=== PATIENT | male | born 1985 | race Caucasian/White ===

== ENCOUNTER 2017-07-08 17:49 | Emergency (ER) | payer BC ==
[~2017-07-08] VITALS: Ht 172.7 cm; Wt 144.0 kg
[~2017-07-08 17:49] MED LIST: ACET-1256 PO
[2017-07-08 18:24] VITALS: TEMP 36.9; Ht 172.7 cm; Wt 144.0 kg
[2017-07-08] MEDS ORDERED: GELATIN SPONGE 12-7MM EXT ONE (19:00)
[2017-07-08] MEDS ORDERED: DIPHTHERIA/TETANUS/PERTUSSIS 0.5 ML SYR/VIAL IM. ONE (19:30)
[2017-07-08 19:43] VITALS: BP 147/97; PULSE 80; O2SAT 95
--- NOTE | 2017-07-10 20:07 | EMERGENCY ROOM VISIT NOTE ---
ED Visit Note First contact with patient: 18:29 Chief Complaint: Cut the tip of my left index finger off. History of Present Illness: Mr. Franz is a 32-year-old white male who ambulates into the ED accompanied by his complaining of a Skin avulsion to the left index finger. Patient reports less than an hour ago he was peeling potatoes when he sliced/ avulsed the tip of the left index finger. He reports she control bleeding but did not wash the wound prior to arrival at the hospital. Associated with his wound he reports he has having a stinging discomfort. He rates his discomfort 4/10. His pain worsens with palpation. He has not identified any alleviating factors related to the pain. He has not taken any medications for pain prior to arrival at the hospital. He denies any associated symptoms including other finger pain, index finger weakness/numbness/ tingling. Review of Systems: As noted above in history of present illness. Past Medical History: Patient denies. Current Medications: Patient denies. Allergies to Medications: Penicillin. Social History: Patient is currently employed; he feels safe in his home environment; he denies tobacco and alcohol use. Tetanus Immunization Status: Patient reports greater than 10 years. Physical Examination: Vital Signs: Date Time Temp Pulse Resp B/P (MAP) Pulse Ox O2 Delivery O2 Flow Rate FiO2 07/08/17 19:43 80 147/97 95 07/08/17 18:24 36.9 77 20 134/74 95 Room Air GENERAL: 32-year-old female in mild distress due to pain, nontoxic-appearing, afebrile and hemodynamically stable. NEUROLOGICAL: Awake, alert and oriented to person, place and time. Answering questions appropriately and following commands. SKIN: Warm, dry and pink. Left Index Finger: Just proximal to the fingernail over the tip of the finger patient has a subcentimeter skin avulsion. Minimal bleeding on my examination. LEFT INDEX FINGER: Please note soft tissue injury above under SKIN. No gross bony deformity. Full range of motion in flexion and extension of the MCP, PIP and DIP joints against resistance. Throughout the finger the skin was warm and pink and capillary refill is brisk. He was able to distinguish light sensations to all dermatomes. ED Course: Patient is assessed as noted above. Patient's medication list was reviewed. Patient was offered pain medications and refused. Patient's wound was cleansed with antibacterial soap and water. The wound was dressed with Surg[place] and a sterile gauze bandage. Patient was educated about tonight's findings and instructed on his treatment plan; he verbalizes understanding and agreement with this plan. Clinical Impression: Left index finger can avulsion. Disposition: Patient discharged home in stable condition; prior to departure he was reassessed and subjectively reported he was pain-free. Plan: Comfort measures, wound care, and signs of infection were discussed with the patient. Patient was encouraged to follow-up with personal physician or return emergency department for signs of infection or any new/concerning symptoms.
== END 2017-07-08 19:45 | disposition home or self-care (01) ==
LOC: C.EDB 17:50 → C.EDD 19:45
DX: S61.201A Unspecified open wound of left index finger without damage to nail, initial encounter (principal); W26.8XXA Contact with other sharp object(s), not elsewhere classified, initial encounter; Z23 Encounter for immunization